=== PATIENT | male | born 1985 | race Caucasian/White ===

== ENCOUNTER 2020-07-15 10:23 | Emergency (ER) | payer OTHER, SELFPAY ==
[2020-07-15 10:24] VITALS: BP 176/95; PULSE 100; RESP 16; TEMP 36.6; O2SAT 99; BMI 26.4
--- NOTE | 2020-07-15 10:34 | ED.VIS.UPPEX ---
History of Present Illness Informant: Patient Occurred: Today Mechanism/Context: Incised Onset: Today Context: Sudden Onset Timing: Continuous Quality of Pain: Throbbing Location: right forearm Current Severity: Mild Maximum Severity: Mild Worsened by: movement Relieved by: rest Associated Symptoms: Negative for: Parasthesia, Weakness, Loss of Funtion Narrative: 35-year-old male [id number] presents with a laceration to his right forearm. He works as a aircraft general repair mechanic. He was working on a car door. He states he accidentally cut his right forearm on his car door at work. He is not having any significant pain but he has been unable to get the bleeding to stop. This occurred just prior to arrival. His last tetanus was a year ago. He has no other injuries at this time. He is right-hand dominant. Tetanus Immunization: <5 years Prior similar symptoms: No Recent Illness/Hospitalization: No <Moo Cordova - Last Filed: 07/15/20 11:01> <Trav Felton - Last Filed: 07/15/20 11:52> Chief Complaint: Laceration Past Medical History Prior records reviewed: Yes Past Medical History: None Lives: With Family Smoking Status: Current every day smoker Alcohol: Occasional <Moo Cordova - Last Filed: 07/15/20 11:01> <Trav Felton - Last Filed: 07/15/20 11:52> - Allergies and Home Meds Allergies/Adverse Reactions: Allergies No Known Allergies Allergy (Verified 07/15/20 10:24) Primary Care Physician: [facility] [NON-STAFF] - As soon as possible Review of Systems All systems negative except as indicated General: Denies: Chills, Fever, Sweats Eyes: Denies: Visual changes - bilaterally, Diplopia ENT: Denies: Rhinorrhea, Sore throat Cardiovascular: Denies: Chest pain, Palpitations Respiratory: Denies: Dyspnea, Cough, Dyspnea on exertion Gastrointestinal: Denies: Abdominal pain, Nausea, Vomiting, Diarrhea, Melena, Hematochezia Genitourinary: Denies: Dysuria, Hematuria, Frequency Musculoskeletal: Denies: Back pain, Extremity Pain Skin: Reports: Wounds. Denies: Rash Neurological: Denies: Headache, Weakness, Numbness <Moo Cordova - Last Filed: 07/15/20 11:01> Physical Exam Vital Signs/Narrative: Vital Signs Temp Pulse Resp BP Pulse Ox 07/15/20 10:24 97.9 F 100 16 176/95 H 99 Inital Vital Signs reviewed: Yes Right Forearm: - - 4 cm laceration to the right forearm on the extensor side. No active bleeding. It is linear. He has normal range of motion actively at his wrist and elbow normally, his radial pulse was normal in the strength testing of both upper extremities is normal. General: Well nourished, Well developed Head: Normocephalic, Atraumatic Eyes: Perrl, EOMI ENT: No Trauma, Moist Mucous Membranes Neck: Nontender, Full ROM Cardiovascular: Regular rate, Regular rhythm, No murmurs Respiratory: No distress, CTA bilaterally, Chest nontender Abdomen: Soft, Nontender, Nondistended, Normal bowel sounds Back: Nontender Skin: Normal color, No rash Neurological: Alert, Oriented x3, Cranial nerves II-XII grossly intact, Normal Strength, Normal Sensation Psychological: Normal affect <Moo Cordova - Last Filed: 07/15/20 11:01> Vital Signs/Narrative: Vital Signs Temp Pulse Resp BP Pulse Ox 07/15/20 10:24 97.9 F 100 16 176/95 H 99 <Trav Felton - Last Filed: 07/15/20 11:52> Diagnostic/Tx/Re-eval - Medical Decision Making Patient's tetanus immunization is up-to-date. His laceration was closed with sutures. See procedure note. Discussed with patient proper wound care. Patient was given signs of infection to monitor for. Patient will follow up with the [facility] as this was a work-related injury. He was given restrictions for work. He was discharged home. <Moo Cordova - Last Filed: 07/15/20 11:01> - Medical Decision Making Patient was seen with me. I did a [id number] examination with the patient. Patient presents with laceration to his right forearm that occurred today while at work. Patient states he cut it on a car door. Patient states his last tetanus was approximately 1 year ago. Patient denies any paresthesias or weakness. Patient states the bleeding stopped after a few minutes with pressure. Vital signs are stable. Patient is afebrile. Patient is in no acute distress. Skin is warm and dry. There is a 4 cm full-thickness linear laceration over the dorsal aspect of the right forearm. There are no foreign bodies. There is moderate gapping of the wound margins. There is no active bleeding noted. There is full range of motion of the right elbow and right wrist. Sensation was intact to light touch in the radial, median, and ulnar areas. Strength is 5/5 in the radial, median, and ulnar areas. Radial pulses are equal bilaterally. The wound was cleaned and closed with simple interrupted sutures. Patient tolerated the procedure well. Patient was instructed to keep the wound clean and dry. Patient was instructed to follow-up with his primary care physician or [facility] in 5 days for wound recheck and suture removal. Patient understood and was agreeable with the plan. All questions were answered. <Trav Felton - Last Filed: 07/15/20 11:52> Procedures - Lacerations No standard instances Length: 1.57 in Depth: Skin Shape: Linear Prep: Sterile Conditions, Chlorhexadine Laceration Repair: Lidocaine, Local, Nerve block, Wound explored Irrigated (ml): 60 Number of Sutures/Powell: 6 Suture Information: Ethilon, Simple, 4-0 <Moo Cordova - Last Filed: 07/15/20 11:01> ED Disposition <Moo Cordova - Last Filed: 07/15/20 11:01> <Trav Felton - Last Filed: 07/15/20 11:52> - Plan for ED Patient: Disposition: Home or Assisted Living Diagnosis: Laceration of right forearm Instructions: ED Laceration Ext Sutr Stap Tape Referrals: [facility] [NON-STAFF] - As soon as possible
== END 2020-07-15 12:12 | disposition home or self-care (01) ==
LOC: ED 11:15
PROVIDERS: Emergency Provider Physician Assistant Medical
DX: S51.811A Laceration without foreign body of right forearm, initial encounter (principal); W45.8XXA Other foreign body or object entering through skin, initial encounter; W22.8XXA Striking against or struck by other objects, initial encounter; Y93.9 Activity, unspecified; Y92.9 Unspecified place or not applicable; Y99.0 Civilian activity done for income or pay; F17.200 Nicotine dependence, unspecified, uncomplicated
CPT/HCPCS: 12002; 99282